=== PATIENT | female | born 2000 | race Caucasian/White ===

== ENCOUNTER → 2022-11-11 | Outpatient (CLI) | payer OTHER | LOC: M RAD 07:18 | PROVIDERS: ATTEND Advanced Practice Midwife | DX: Z32.01 Encounter for pregnancy test, result positive (principal); Z3A.19 19 weeks gestation of pregnancy ==

== ENCOUNTER 2023-04-13 11:34 | Outpatient (CLI) | payer OTHER ==
[~2023-04-13] VITALS: Ht 167.6 cm; Wt 88.9 kg
[2023-04-13 12:00] VITALS: BP 119/72
[2023-04-13] MEDS ORDERED: TUMS750C5 PO (12:00)
[2023-04-13] MEDS ORDERED: PRENTAB9 PO ×2 (12:00)
[2023-04-13] MEDS ORDERED: ACET325C5 PO (12:00)
[2023-04-13] MEDS ORDERED: HOME MED LIST COMPLETE! XX SCH (12:00)
[2023-04-14] MEDS ORDERED: FAMO20TA PO (13:57)
[2023-04-14] MEDS ORDERED: VITA100065 PO (13:57)
[2023-04-14] MEDS ORDERED: IRON65TA2 PO (13:57)
== END 2023-04-13 13:18 | disposition home or self-care (01) ==
LOC: M LDO 11:34 → M LDI 04-14 12:15 → UNDOADMIN 04-14 12:15 → M LDI 04-14 12:15 → UNDODISIN 04-14 13:06 → M LDO 04-14 13:06
PROVIDERS: ATTEND Obstetrics & Gynecology
DX: O26.893 Other specified pregnancy related conditions, third trimester (principal); N89.8 Other specified noninflammatory disorders of vagina; O48.0 Post-term pregnancy; Z3A.40 40 weeks gestation of pregnancy
CPT/HCPCS: 59025; 76815; G0463

== ENCOUNTER 2023-04-14 13:31 | Inpatient (IN) | payer OTHER ==
[2023-04-14] VITALS (35 sets, daily range): BP systolic 102–187; BP diastolic 55–104
[~2023-04-14] VITALS: Ht 170.2 cm; Wt 88.9 kg
[~2023-04-14 13:31] MED LIST: ACET325C5 PO; PRENTAB9 PO; TUMS750C5 PO
[2023-04-14] MEDS ORDERED: VITA100065 PO (13:57)
[2023-04-14] MEDS ORDERED: IRON65TA2 PO (13:57)
[2023-04-14] MEDS ORDERED: FAMO20TA PO (13:57)
[2023-04-14] MEDS ORDERED: LACTATED RINGER'S 1000 ML IV STA (14:11)
[2023-04-14] MEDS ORDERED: OXYTOCIN DRIP 30 UNITS in IV 1 EA IV SCH (14:15)
[2023-04-14] MEDS ORDERED: OXYTOCIN INJ 10UNITS/ML 1ML VIAL IM PRN (14:15)
[2023-04-14] MEDS ORDERED: OXYTOCIN INJ 10UNITS/ML 1ML VIAL IV PRN (14:15)
[2023-04-14] MEDS ORDERED: OXYTOCIN DRIP 30 UNITS in IV 1 EA IV PRN ×6 (14:15)
[2023-04-14] MEDS ORDERED: METHYLERGONOVINE MALEATE 0.2MG/ML 1ML VIAL IM PRN (14:15)
[2023-04-14] MEDS ORDERED: TRANEXAMIC ACID INJection 1,000 MG in NS 100 ML IV PRN (14:15)
[2023-04-14] MEDS ORDERED: LIDOCAINE 1% MDV 20ML VIAL INFIL PRN (14:15)
[2023-04-14] MEDS ORDERED: LR 1,000 ML IV SCH (14:15)
[2023-04-14] MEDS ORDERED: CARBOPROST TROMETHAMINE 250 MCG/ML AMP IM PRN (14:15)
[2023-04-14] MEDS ORDERED: miSOPROStol 50MCG 1/2 TABLET PO PRN (14:15)
[2023-04-14 14:36] LABS: HEMATOCRIT 34.5 % (36.0-47.0); HEMOGLOBIN 11.2 g/dl (12.0-15.5); MEAN CORPUSCULAR HEMOGLOBIN 25.5 pg (27.0-33.0); MEAN CORPUSCULAR HGB CONC 32.5 g/dl (32.0-36.5); MEAN CORPUSCULAR VOLUME 78.6 fl (80.0-96.0); PLATELET COUNT, AUTOMATED 161 10^3/uL (150-450); RED BLOOD COUNT 4.39 10^6/uL (4.00-5.40); WHITE BLOOD COUNT 11.1 10^3/uL (4.0-10.0)
[2023-04-14] MEDS: LR 1,000 ML IV SCH ×2 (15:19→23:09)
[2023-04-14] MEDS ORDERED: ePHEDrine SULFATE 25 MG/5 ML(5MG/ML) SYRINGE IVP PRN (17:55)
[2023-04-14] MEDS ORDERED: diphenhydrAMINE 50MG/ML VIAL IV PRN (17:55)
[2023-04-14] MEDS ORDERED: NALOXONE INJ 0.4MG/1ML VIAL IV PRN (17:55)
[2023-04-14] MEDS ORDERED: LR 500 ML IV PRN (17:55)
[2023-04-14] MEDS ORDERED: FENTANYL/ROPIVACAINE/NACL BAG 100 ML EPIDURAL SCH (17:55)
[2023-04-14] MEDS ORDERED: ONDANSETRON 4MG 2ML VIAL IV PRN (17:55)
[2023-04-14] MEDS ORDERED: EPIDURAL/PCA KEYS XX PRN (17:55)
[2023-04-14] MEDS ORDERED: CALCIUM CARBONATE 500 MG CHEW U/D PO ONE (23:25)
[2023-04-15] VITALS (20 sets, daily range): BP systolic 109–137; BP diastolic 63–90; O2SAT 98–100
[2023-04-15] MEDS ORDERED: MOM 30ML SUSPENSION UDC PO PRN (06:00)
[2023-04-15] MEDS ORDERED: RHOGAM 300MCG (1500IU) INJ IM SCH (06:00)
[2023-04-15] MEDS ORDERED: ACETAMINOPHEN 500 MG TAB PO PRN (06:00)
[2023-04-15] MEDS ORDERED: DOCUSATE SODIUM 100MG CAPSULE PO PRN (06:00)
[2023-04-15] MEDS ORDERED: IBUPROFEN 800 MG TAB PO PRN (06:00)
[2023-04-15] MEDS ORDERED: OXYTOCIN 30UNITS IN 0.9% NaCl 500ML IV BAG As Ordered ONE (06:16)
[2023-04-15] MEDS ORDERED: PRENATAL VITAMINS CHEWABLE TABLET PO SCH (09:00)
[2023-04-15] MEDS: PRENATAL VITAMINS CHEWABLE TABLET PO SCH (09:00)
[2023-04-15] MEDS: DIBUCAINE 1% OINTMENT 30GM TOP PRN (09:09)
[2023-04-16 06:00] VITALS: BP 108/58
[2023-04-16 09:01] VITALS: BP 108/58; TEMP 97.1; O2SAT 100
[2023-04-16] MEDS: PRENATAL VITAMINS CHEWABLE TABLET PO SCH (09:23)
[2023-04-16] MEDS ORDERED: ACET-683 PO (09:36)
[2023-04-16] MEDS ORDERED: IBUP80TA PO (09:36)
[2023-04-16] MEDS ORDERED: COLA100C5 PO (09:36)
[2023-04-16] MEDS: DIBUCAINE 1% OINTMENT 30GM TOP PRN (10:14)
[2023-04-17] MEDS ORDERED: MEASLES,MUMPS,RUBELLA VACCINE INJ (MMR-II) SC.IMMUN ONE (09:00)
== END 2023-04-16 16:50 | disposition home or self-care (01) | DRG 807 ==
LOC: M LDI 13:31 → M OBS 04-15 07:56
PROVIDERS: ADMIT Obstetrics & Gynecology; ATTEND Obstetrics & Gynecology
PROC: 3E0P7GC Introduction of Other Therapeutic Substance into Female Reproductive, Via Natural or Artificial Opening (ICD-10-PCS; 2023-04-14)
PROC: 10E0XZZ Delivery of Products of Conception, External Approach (ICD-10-PCS; principal; 2023-04-15)
PROC: 0HQ9XZZ Repair Perineum Skin, External Approach (ICD-10-PCS; 2023-04-15)
DX: O48.0 Post-term pregnancy (principal); Z37.0 Single live birth; Z3A.41 41 weeks gestation of pregnancy; O76 Abnormality in fetal heart rate and rhythm complicating labor and delivery; O70.0 First degree perineal laceration during delivery